=== PATIENT | male | born 1970 | race Caucasian/White ===

== ENCOUNTER → 2020-07-04 16:04 | Outpatient (BNVA) | payer OTHER, SELFPAY | PROVIDERS: PCP Internal Medicine; Referring Provider Internal Medicine; Visit Provider Internal Medicine Endocrinology, Diabetes & Metabolism | DX: E11.9 Type 2 diabetes mellitus without complications (principal); Z79.84 Long term (current) use of oral hypoglycemic drugs; E66.01 Morbid (severe) obesity due to excess calories; E78.5 Hyperlipidemia, unspecified; I10 Essential (primary) hypertension | CPT/HCPCS: 99212 ==

== ENCOUNTER → 2020-11-03 14:09 | Outpatient (BNVA) | payer OTHER, SELFPAY | PROVIDERS: PCP Internal Medicine; Referring Provider Internal Medicine; Visit Provider Internal Medicine Endocrinology, Diabetes & Metabolism | DX: E66.01 Morbid (severe) obesity due to excess calories (principal); E78.5 Hyperlipidemia, unspecified; I10 Essential (primary) hypertension; E11.9 Type 2 diabetes mellitus without complications | CPT/HCPCS: 82947; 99212 ==

== ENCOUNTER 2021-03-29 12:58 | Outpatient (REF) | payer OTHER, SELFPAY ==
[2021-03-29 15:15] LABS: Alanine Aminotransferase 33 U/L (0-40); Albumin Level 4.4 g/dL (3.5-5.0); Alkaline Phosphatase 62 U/L (39-117); Anion Gap 12 (12-20); Aspartate Amino Transferase 22 U/L (5-37); Bilirubin Total 0.5 mg/dL (0.0-1.0); Blood Urea Nitrogen 12 mg/dL (9-16); Calcium 9.1 mg/dL (8.4-10.2); Carbon Dioxide 25 mmol/L (22-29); Chloride 105 mmol/L (96-108); Cholesterol 148 mg/dL; Estimated Glomerular Filt Rate > 60; Glucose Fasting 124 mg/dL (60-99); HDL Cholesterol 45 mg/dL; LDL Cholesterol Calculated 87 mg/dl; Potassium 4.5 mmol/L (3.3-5.1); Sodium 137 mmol/L (135-145); Total Protein 7.4 g/dL (6.5-8.0); Triglycerides 81 mg/dL
[2021-03-29 15:36] LABS: Creatinine Urine 186.23 mg/dL; Microalbum/Creatinine Ratio Ur 4.2 ug/mg cr
[2021-03-29 15:39] LABS: Vitamin B12 169 pg/mL (200-900)
[2021-03-30 19:12] LABS: LDL Cholesterol Direct 91 mg/dL (<100)
== END 2021-03-29 12:59 | disposition home or self-care (01) ==
LOC: HO.LAB 12:58
PROVIDERS: PCP Internal Medicine; Visit Provider Internal Medicine Endocrinology, Diabetes & Metabolism
DX: E11.9 Type 2 diabetes mellitus without complications (principal); E66.01 Morbid (severe) obesity due to excess calories; E78.5 Hyperlipidemia, unspecified; I10 Essential (primary) hypertension; Z79.899 Other long term (current) drug therapy
CPT/HCPCS: 36415; 80053; 80061; 82043; 82607; 82947; 83721; 99212

== ENCOUNTER 2021-04-02 12:14 | Outpatient (REF) | payer OTHER, SELFPAY ==
--- NOTE | ~2021-04-02 | XR_ITS ---
EXAMINATION: XR SHOULDER, LEFT CLINICAL INFORMATION: Pain COMPARISON: None TECHNIQUE: Three views of the left shoulder. FINDINGS: Bone alignment is normal. No fracture or dislocation is seen. The joint spaces are normal. Soft tissues are normal. XR/XR shoulder LT min 2V IMPRESSION: Normal left shoulder.
== END 2021-04-02 12:15 | disposition home or self-care (01) ==
LOC: HO.HOSX 12:14
PROVIDERS: Visit Provider Orthopaedic Surgery
DX: M75.102 Unspecified rotator cuff tear or rupture of left shoulder, not specified as traumatic (principal)
CPT/HCPCS: 20610; 73030; 99202; J1100

== ENCOUNTER 2021-06-19 11:03 | Outpatient (RCR) | payer OTHER, SELFPAY ==
[2021-06-19 11:21] VITALS: BP 125/85
--- NOTE | 2021-06-28 09:41 | MHC.PT.EP ---
[facility] [place] Office [place] Office [place] Office [address] Oscar [address] [phone] F: [phone] F: [phone] F: [phone] F: [phone] Physical Therapy Plan of Care Date of Evaluation: Date of Surgery: Diagnosis: L shoulder RTC tear. Assessment: Pt is a 51 y/o male referred to PT for L shoulder RTC tear resulting in decreased tolerance and ability to perform reaching a high shelf, dressing pullovers, reaching his neck and back for hygiene/ dressing and carrying objects of weight as well as disturbed sleep secondary to decreased UE strength and ROM, decreased posture, increased tissue tension and pain. Pt is deemed an appropriate candidate to receive skilled PT in order to address his physical limitations to improve his functional ability. Frequency and Duration: The patient will be seen x / wk x 5 wks. Short Term Goals: Initiate HEP. improve baseline pain to < 5/10; initial 9/10. Business Operations Coordinator Goals: I with HEP. Pt will be able to place objects on a high shelf with managed Sx; initial: unable. Pt will reports managed Sx with dressing pullovers; initial 9/10 pain/ difficulty on SPADI. Treatment Plan: Modalities to reduce pain, spasms and effusion. Manual therapy to restore motion and function. Therapeutic exercise to improve strength and flexibility. Neuromuscular re-education for posture and balance. Therapeutic activities to return to functional activities of daily living. Electronically signed by: Patrick Mackey Pt. Please sign and return to therapist. Thank you for your referral.
--- NOTE | 2021-09-24 10:52 | MHC.PT.DC ---
[facility] Office [place] Office [place] Office [address] Lina Oscar [address] [phone] F: [phone] F: [phone] F: [phone] F: [phone] Physical Therapy Discharge Report Diagnosis: L shoulder RTC tear. Date of Surgery: Date of Evaluation: 06/19/21 Date of Discharge: 09/24/21 Treatments to Date: 1 Cancellations to Date: 3 No Shows to Date: 3 Discharge Status: Visit Non-compliance Discharge Summary: Electronically signed by: Patrick Mackey PT. Please sign and return to therapist. Thank you for your referral.
== END 2021-09-24 10:51 | disposition home or self-care (01) ==
LOC: HO.PTCHIC 11:03
PROVIDERS: PCP Internal Medicine; Visit Provider Orthopaedic Surgery
DX: M75.102 Unspecified rotator cuff tear or rupture of left shoulder, not specified as traumatic (principal)
CPT/HCPCS: 97110; 97161

== ENCOUNTER → 2021-10-02 10:52 | Outpatient (BNVA) | payer OTHER, SELFPAY | PROVIDERS: PCP Internal Medicine; Visit Provider Nurse Practitioner Gerontology | DX: E11.9 Type 2 diabetes mellitus without complications (principal); E78.5 Hyperlipidemia, unspecified; E53.8 Deficiency of other specified B group vitamins; E66.01 Morbid (severe) obesity due to excess calories; I10 Essential (primary) hypertension; Z68.42 Body mass index [BMI] 45.0-49.9, adult | CPT/HCPCS: 82947; 83036; 99212 ==

== ENCOUNTER → 2022-01-01 11:34 | Outpatient (BNVA) | payer OTHER, SELFPAY | PROVIDERS: PCP Internal Medicine; Visit Provider Nurse Practitioner Gerontology | DX: E11.9 Type 2 diabetes mellitus without complications (principal); E78.5 Hyperlipidemia, unspecified; E53.8 Deficiency of other specified B group vitamins; E66.01 Morbid (severe) obesity due to excess calories; I10 Essential (primary) hypertension; Z68.42 Body mass index [BMI] 45.0-49.9, adult; Z79.4 Long term (current) use of insulin | CPT/HCPCS: 82947; 83036; 99212 ==

== ENCOUNTER → 2022-04-11 14:29 | Outpatient (BNVA) | payer OTHER, SELFPAY | PROVIDERS: PCP Internal Medicine; Visit Provider Orthopaedic Surgery | DX: M75.102 Unspecified rotator cuff tear or rupture of left shoulder, not specified as traumatic (principal); E66.01 Morbid (severe) obesity due to excess calories; M75.31 Calcific tendinitis of right shoulder; E11.9 Type 2 diabetes mellitus without complications | CPT/HCPCS: 99212 ==

== ENCOUNTER → 2022-05-10 08:52 | Outpatient (BNVA) | payer OTHER, SELFPAY | PROVIDERS: PCP Physician Assistant Medical; Visit Provider Internal Medicine | DX: M25.511 Pain in right shoulder (principal); M25.512 Pain in left shoulder; M75.102 Unspecified rotator cuff tear or rupture of left shoulder, not specified as traumatic | CPT/HCPCS: 99202 ==

== ENCOUNTER → 2022-05-16 10:29 | Outpatient (BNVA) | payer OTHER, SELFPAY | PROVIDERS: PCP Physician Assistant Medical; Visit Provider Physician Assistant | DX: E66.01 Morbid (severe) obesity due to excess calories (principal); G47.33 Obstructive sleep apnea (adult) (pediatric); I48.91 Unspecified atrial fibrillation; I10 Essential (primary) hypertension; E78.5 Hyperlipidemia, unspecified; E11.9 Type 2 diabetes mellitus without complications; Z68.43 Body mass index [BMI] 50.0-59.9, adult | CPT/HCPCS: 99202; 99212 ==

== ENCOUNTER → 2022-06-06 10:21 | Outpatient (BNVA) | payer OTHER, SELFPAY | PROVIDERS: PCP Physician Assistant Medical; Visit Provider Physician Assistant | DX: E66.01 Morbid (severe) obesity due to excess calories (principal); G47.33 Obstructive sleep apnea (adult) (pediatric); I48.91 Unspecified atrial fibrillation; I10 Essential (primary) hypertension; E78.5 Hyperlipidemia, unspecified; E11.9 Type 2 diabetes mellitus without complications; Z68.43 Body mass index [BMI] 50.0-59.9, adult | CPT/HCPCS: 99211; 99212 ==

== ENCOUNTER 2022-06-07 16:01 | Outpatient (REF) | payer OTHER, SELFPAY ==
[2022-06-09 14:39] LABS: H Pylori Breath Test Positive (Negative)
== END 2022-06-07 16:02 | disposition home or self-care (01) ==
LOC: HO.LNP 16:01
PROVIDERS: Visit Provider Physician Assistant
DX: E66.01 Morbid (severe) obesity due to excess calories (principal); E11.9 Type 2 diabetes mellitus without complications
CPT/HCPCS: 83013

== ENCOUNTER 2022-06-25 12:00 | Outpatient (REF) | payer OTHER, SELFPAY ==
--- NOTE | ~2022-06-25 | XR_ITS ---
EXAMINATION: XR CHEST CLINICAL INFORMATION: Morbid obesity COMPARISON: None TECHNIQUE: 2 views of the chest were obtained. FINDINGS: Heart is normal in size. No acute vascular congestion. No focal infiltrates or pleural effusions. XR/XR chest 2V IMPRESSION: No acute process
[2022-06-25 12:30] LABS: MANUAL DIFF FLAG NO
--- NOTE | 2022-06-25 12:32 | ECG_ITS ---
Test Reason : E66.01 Blood Pressure : / mmHG Vent. Rate : 068 BPM Atrial Rate : 068 BPM P-R Int : 148 ms QRS Dur : 086 ms QT Int : 402 ms P-R-T Axes : 044 042 047 degrees QTc Int : 427 ms Normal sinus rhythm with sinus arrhythmia RSR' or QR pattern in V1 suggests right ventricular conduction delay Otherwise normal ECG No previous ECGs available Referred By: Mildred Lomas Electronically Signed By:NATHANIEL HORNER MD
[2022-06-25 13:16] LABS: Basophils Percent Auto 0.2 % (0-2); Eosinophils Absolute Auto 0.1 X10*3/uL (0.0-0.4); Eosinophils Percent Auto 2.4 % (0-4); Hematocrit 49.8 % (42.0-52.0); Hemoglobin 16.3 g/dl (14.0-18.0); Imm Gran Abs Auto 0.01 X10*3/uL (0.00-0.03); Imm Gran Pct Auto 0.2 % (0.0-0.4); Lymphocytes Absolute Auto 2.1 X10*3/uL (1.2-4.9); Lymphocytes Percent Auto 41.3 % (20-40); Mean Corpuscular HGB Conc 32.7 g/dl (31.0-36.0); Mean Corpuscular Volume 85.4 fL (80.0-98.0); Monocytes Absolute Auto 0.4 X10*3/uL (0.1-1.2); Monocytes Percent Auto 7.2 % (2-11); Neutrophils Absolute Auto 2.4 x10*3/uL (2.0-8.3); Neutrophils Percent Auto 48.7 % (45-73); Platelet Count 164 X10*3/uL (160-400); Red Blood Count 5.83 X10*6/uL (4.60-5.80)
[2022-06-25 13:22] LABS: Estimated Average Glucose 148 mg/dL; Hemoglobin A1c % 6.8 %
[2022-06-25 14:03] LABS: Alanine Aminotransferase 38 U/L (0-40); Albumin Level 4.5 g/dL (3.5-5.0); Alkaline Phosphatase 56 U/L (39-117); Anion Gap 15 (12-20); Aspartate Amino Transferase 21 U/L (5-37); Bilirubin Total 0.5 mg/dL (0.0-1.0); Blood Urea Nitrogen 18 mg/dL (9-16); C Reactive Protein 0.22 mg/dL (< or = 0.50); Calcium 9.6 mg/dL (8.4-10.2); Carbon Dioxide 27 mmol/L (22-29); Chloride 102 mmol/L (96-108); Cholesterol 214 mg/dL; Estimated Glomerular Filt Rate > 60; Glucose Random 134 mg/dL (60-115); HDL Cholesterol 46 mg/dL; Iron 65 mcg/dL (45-160); LDL Cholesterol Calculated 146 mg/dl; Percent Iron Saturation 21 % (15-50); Potassium 4.5 mmol/L (3.3-5.1); Sodium 139 mmol/L (135-145); Total Iron Binding Capacity 315 mcg/dL (228-428); Total Protein 7.4 g/dL (6.5-8.0); Triglycerides 112 mg/dL; Unsaturated Iron Binding 250 ug/dL
[2022-06-25 14:25] LABS: Folate 16.8 ng/mL (> or = 4.0); Vitamin B12 179 pg/mL (200-900)
[2022-06-25 14:31] LABS: Ferritin 156 ng/mL (20-250); Insulin 39 uU/mL (2-29); Vitamin D 25-OH Total 16.5 ng/mL (>30)
[2022-06-27 14:57] LABS: Calcium (PTHI) 9.4 mg/dL (8.6-10.3); PTHI 49 pg/mL (16-77)
[2022-06-29 06:52] LABS: Zinc 83 mcg/dL (60-130)
[2022-06-29 08:17] LABS: Vitamin B1 10 nmol/L (8-30)
[2022-06-30 18:56] LABS: Vitamin A 32 mcg/dL (38-98)
== END 2022-06-25 12:01 | disposition home or self-care (01) ==
LOC: HO.LAB 12:00
PROVIDERS: Visit Provider Physician Assistant
DX: E11.9 Type 2 diabetes mellitus without complications (principal); E66.01 Morbid (severe) obesity due to excess calories; E78.5 Hyperlipidemia, unspecified; G47.33 Obstructive sleep apnea (adult) (pediatric); I48.91 Unspecified atrial fibrillation; I10 Essential (primary) hypertension
CPT/HCPCS: 36415; 71046; 80053; 80061; 82306; 82607; 82728; 82746; 83036; 83525; 83540; 83970; 84425; 84443; 84590; 84630; 85025; 86140; 93005

== ENCOUNTER → 2022-07-24 10:17 | Outpatient (REF) | payer OTHER, SELFPAY ==
--- NOTE | 2022-07-24 10:20 | CA_ITS ---
Acquisition Time: 2022-07-24 10:49:17 Total Exercise Time: 00:06:52 Test Indications: Abn EKG Medications: See H Protocol: KAYLIE Max HR: 171 BPM 100% of Pred: 170 BPM Max BP: 182/070 mmHG Max Work Load: 8.3 METS Exercise stress test with exercise 6 min 52 sec of Kaylie protocol, achieving 100% MPHR, 8.3 METs, with moderate sob and fatigue with need to stop, with normotensive response to exercise, without EKG changes meeting criteria for ischemia. In recovery his breathing normalized. Test reviewed with Dr Miramontes Referred By: Mildred Lomas Overread By: DESTINEE LOZADA
== END ==
LOC: HO.CARD 10:17
PROVIDERS: Visit Provider Physician Assistant
DX: Z01.818 Encounter for other preprocedural examination (principal); E66.01 Morbid (severe) obesity due to excess calories; I10 Essential (primary) hypertension; I48.91 Unspecified atrial fibrillation; R94.31 Abnormal electrocardiogram [ECG] [EKG]
CPT/HCPCS: 93017

== ENCOUNTER → 2022-08-09 13:00 | Outpatient (BNVA) | payer OTHER, SELFPAY | PROVIDERS: PCP Physician Assistant Medical; Visit Provider Dietitian, Registered | DX: E66.01 Morbid (severe) obesity due to excess calories (principal); Z68.42 Body mass index [BMI] 45.0-49.9, adult; E11.9 Type 2 diabetes mellitus without complications; Z71.3 Dietary counseling and surveillance | CPT/HCPCS: 97802 ==

== ENCOUNTER → 2022-08-15 10:15 | Outpatient (BNVA) | payer OTHER, SELFPAY | PROVIDERS: PCP Physician Assistant Medical; Visit Provider Physician Assistant | DX: E66.01 Morbid (severe) obesity due to excess calories (principal); Z68.42 Body mass index [BMI] 45.0-49.9, adult; G47.33 Obstructive sleep apnea (adult) (pediatric); I48.91 Unspecified atrial fibrillation; I10 Essential (primary) hypertension; E78.5 Hyperlipidemia, unspecified; E11.9 Type 2 diabetes mellitus without complications | CPT/HCPCS: 99212 ==

== ENCOUNTER → 2022-09-04 08:54 | Outpatient (BNVA) | payer OTHER, SELFPAY | PROVIDERS: PCP Physician Assistant Medical; Referring Provider Physician Assistant; Visit Provider Dietitian, Registered | DX: E66.9 Obesity, unspecified (principal); E11.9 Type 2 diabetes mellitus without complications; Z11.0 Encounter for screening for intestinal infectious diseases; Z71.3 Dietary counseling and surveillance | CPT/HCPCS: 97803; 99211 ==

== ENCOUNTER 2022-09-04 15:26 | Outpatient (REF) | payer OTHER, SELFPAY ==
[2022-09-05 13:57] LABS: H Pylori Breath Test Positive (Negative)
== END 2022-09-04 15:27 | disposition home or self-care (01) ==
LOC: HO.LNP 15:26
PROVIDERS: Visit Provider Physician Assistant
DX: Z01.818 Encounter for other preprocedural examination (principal)
CPT/HCPCS: 83013

== ENCOUNTER → 2022-09-11 13:28 | Outpatient (BNVA) | payer OTHER, SELFPAY | PROVIDERS: PCP Physician Assistant Medical; Visit Provider Physician Assistant | DX: Z13.89 Encounter for screening for other disorder (principal) ==

== ENCOUNTER → 2022-10-03 10:50 | Outpatient (BNVA) | payer OTHER, SELFPAY | PROVIDERS: PCP Physician Assistant Medical; Visit Provider Physician Assistant | DX: Z13.89 Encounter for screening for other disorder (principal) ==

== ENCOUNTER → 2022-10-21 13:52 | Outpatient (BNVA) | payer OTHER, SELFPAY | PROVIDERS: PCP Physician Assistant Medical; Visit Provider Physician Assistant | DX: E66.01 Morbid (severe) obesity due to excess calories (principal); E11.9 Type 2 diabetes mellitus without complications; I10 Essential (primary) hypertension; I48.91 Unspecified atrial fibrillation; I45.89 Other specified conduction disorders; I49.9 Cardiac arrhythmia, unspecified; E78.5 Hyperlipidemia, unspecified; Z68.42 Body mass index [BMI] 45.0-49.9, adult | CPT/HCPCS: 99212 ==

== ENCOUNTER → 2022-11-19 10:47 | Outpatient (BNVA) | payer OTHER, SELFPAY | PROVIDERS: PCP Physician Assistant Medical; Visit Provider Dietitian, Registered | DX: E66.9 Obesity, unspecified (principal); E11.9 Type 2 diabetes mellitus without complications; Z71.3 Dietary counseling and surveillance | CPT/HCPCS: 97803 ==

== ENCOUNTER → 2022-12-20 12:46 | Outpatient (BNVA) | payer OTHER, SELFPAY | PROVIDERS: PCP Physician Assistant Medical; Visit Provider Physician Assistant | DX: E66.01 Morbid (severe) obesity due to excess calories (principal); I48.91 Unspecified atrial fibrillation; E78.5 Hyperlipidemia, unspecified; Z68.42 Body mass index [BMI] 45.0-49.9, adult | CPT/HCPCS: 99212 ==

== ENCOUNTER 2023-01-22 09:24 | Outpatient (REF) | payer OTHER, SELFPAY ==
--- NOTE | ~2023-01-22 | US_ITS ---
EXAMINATION: US COMPLETE ABDOMEN WITH LIVER ELASTOGRAPHY CLINICAL INFORMATION: Obesity COMPARISON: None available. TECHNIQUE: Real-time imaging of the abdominal viscera. Noninvasive ultrasound liver fibrosis assessment is performed using Tish ElastPQ point quantification shear wave elastography (2D-SWE) with a C5-2 MHz transducer. Multiple elastography samples are obtained. Limited exam due to patient body habitus and bowel gas. FINDINGS: PANCREAS: Not well visualized ABDOMINAL AORTA: The proximal, middle, and distal aortic segments are normal in caliber. INFERIOR VENA CAVA: Visualized portions are normal. LIVER: Liver echotexture is increased. The liver is normal in contour and size. No focal lesion or intrahepatic biliary duct dilatation. The right lobe measures 17 cm in length. The left lobe measures 14 cm in length. Portal flow is normal/hepatopedal Shear wave liver elastography median stiffness is 1.9 m/s (reference: normal median stiffness is 1.3 m/s or less). IQR/median stiffness to assess sampling precision is 0.12 (reference: good quality data set is IQR/median stiffness of 0.15 or less). GALLBLADDER: Ringdown artifact from the gallbladder suggestive of mild adenomyomatosis of the gallbladder wall. The gallbladder is otherwise normal. COMMON BILE DUCT: Normal in caliber measuring 0.5 cm in diameter. RIGHT KIDNEY: Question 3 mm stone in the midpole. No hydronephrosis. No focal parenchymal lesions. The kidney measures 11.6 cm in maximum dimension. LEFT KIDNEY: Normal. No hydronephrosis. No renal calculi or focal parenchymal lesions. The kidney measures 12.7 cm in maximum dimension. SPLEEN: Normal. The spleen measures 10 cm in maximum dimension. FREE FLUID: None. US/US abdomen comp w elastography IMPRESSION: 1. Impression: Limited exam due to patient body habitus and bowel gas. Echogenic liver probably representing fatty infiltration. Mild adenomyomatosis of the gallbladder wall. Question small right renal stone. Nonvisualization of the pancreas. 2. Liver elastography: Adequate liver sampling. Slightly increased liver stiffness suggestive of compensated advanced chronic liver disease but need further test for confirmation. REFERENCE: Society of Radiologists in Ultrasound Liver Stiffness Thresholds (2020): LIVER STIFFNESS THRESHOLDS: *Liver Stiffness equal or less than 1.3 m/s: High probability of being normal. *Liver Stiffness less than 1.7 m/s: In the absence of other known clinical signs, rules out compensated advanced chronic liver disease. *Liver Stiffness 1.7-2.1 m/s: Suggestive of compensated advanced chronic liver disease but need further test for confirmation. *Liver Stiffness over 2.1 m/s: Rules in compensated advanced chronic liver disease. *Liver Stiffness over 2.4 m/s: Suggestive of clinically significant portal hypertension. QUALITY OF DATA SET: *IQR/Median value equal or less than 0.15 implies a quality data set. *IQR/Median value over 0.15 implies a poor quality data set. SIGNIFICANT CHANGE FROM PRIOR EXAM: Significant change if liver stiffness measurement is 10% or greater from prior exam. OTHER CONSIDERATIONS: The stage of liver fibrosis may be overestimated in the setting of acute hepatitis, liver inflammation, elevated liver function tests, hepatic vascular congestion, obstructive cholestasis, non-fasting state, and infiltrative diseases such as amyloidosis and lymphoma. In some patients with NAFLD, the liver stiffness thresholds for compensated advanced chronic liver disease may be lower. In causes other than viral hepatitis and NAFLD, liver stiffness thresholds are not well established.
--- NOTE | ~2023-01-22 | FL_ITS ---
EXAMINATION: XR FLUOROSCOPY UPPER GI WITH AIR CLINICAL INFORMATION: Morbid obesity COMPARISON: None available. TECHNIQUE: Air-contrast upper GI examination. FINDINGS: There is normal apposition of the vocal cords while saying E . There is normal elevation of the soft palate while saying candy . The patient swallowed thin and thick barium and a 1/2 inch diameter barium tablet without difficulty. No persistent esophageal stricture is seen. There is normal esophageal motility. No mucosal abnormality is noted. No hiatal hernia is seen. There is mild transient gastroesophageal reflux seen within the distal third of the esophagus. The stomach demonstrates normal distensibility without abnormal mass or ulceration. There was no delay in gastric emptying. The duodenal bulb and sweep appeared unremarkable. FLUOROSCOPY TIME: 1.7 minutes DOSE AREA PRODUCT: 34.813 Gy-cm2 (levine-centimeter squared) FL/FL upper GI w air IMPRESSION: Mild gastroesophageal reflux which clears rapidly. Otherwise unremarkable air-contrast upper GI examination.
== END 2023-01-22 09:25 | disposition home or self-care (01) ==
LOC: HO.US 09:24
PROVIDERS: PCP Physician Assistant Medical; Visit Provider Physician Assistant
DX: Z01.818 Encounter for other preprocedural examination (principal); E66.01 Morbid (severe) obesity due to excess calories; E11.9 Type 2 diabetes mellitus without complications; E78.5 Hyperlipidemia, unspecified
CPT/HCPCS: 74246; 76705; 76981

== ENCOUNTER 2023-04-07 12:50 | Outpatient (AMB) | payer OTHER, SELFPAY ==
[2023-04-07 12:58] VITALS: BP 120/84; PULSE 78; BMI 50.1
--- NOTE | 2023-04-07 12:58 | MHC.OFFVIS ---
Intake Vital Signs 04/07/23 12:58 Height 5 ft 11 in Weight 359 lb 5.655 oz BMI 50.1 BP 120/84 Blood Pressure Location Lt brachial Position Sitting Pulse 78 Intake Visit Reasons: JACK WINDER/Suri Lomas /Abnormal electrocardiogram Intake Note: New patient abnormal ekg in the passed was a [facility] but not sure shy Sales Intern Required: No Allergies No Known Allergies Allergy (Verified 12/20/22 12:58) Medication List - Last Reconciled 04/07/23 by Carlos Alberto Miramontes MD canagliflozin (Invokana) 300 mg PO DAILY 30 days cholecalciferol (vitamin D3) 50 mcg PO DAILY cyanocobalamin (vitamin B-12) 500 mcg sublingual DAILY 90 days dulaglutide (Trulicity) 1.5 mg (0.5 mL) subcut QWEEK 28 days FreeStyle [place] Lite (blood-glucose meter) twice a day NS FreeStyle Lancets (lancets) twice a day NS FreeStyle Lite Strips (blood sugar diagnostic) Twice a day NS gabapentin 300 mg PO BEDTIME lisinopril 5 mg PO DAILY 30 days metoprolol succinate ER 25 mg PO DAILY rivaroxaban (Xarelto) 20 mg PO DAILY rosuvastatin 40 mg PO DAILY 30 days trazodone 100 mg PO BEDTIME PRN vitamin A palmitate 20,000 units PO DAILY 2 weeks zolpidem 10 mg PO BEDTIME PRN HPI HPI Comments History of Present Illness Details Thank you for referring Colton in cardiology consultation today for preoperative cardiovascular risk stratification prior to bariatric surgery. He is a pleasant 53-year-old male with prior history of paroxysmal atrial fibrillation diagnosed in 2012, hypertension, diabetes, obstructive sleep apnea. Patient schedule for bariatric surgery due to morbid obesity and to improve his comorbidities. Patient has no exertional chest pain or shortness of breath. Recently had EKG which shows inferior Q-waves and poor R-wave progression. Patient was referred for further evaluation for preoperative cardiovascular risk stratification. Patient denies any cardiovascular symptoms at good workload. Denies any exertional chest pain or shortness of breath. He r underwent a stress test in July which at 8 Mets of physical capacity had no symptoms of angina and no ischemic EKG changes. He has had no episodes of atrial fibrillation. He does not use his CPAP machine due to intolerance. He said he takes all his medications regularly including Xarelto. He denies any bleeding issues or neurologic events. [facility] Medical History A-fib B12 deficiency Chronic back pain Diabetes type 2, controlled Dyslipidemia Hypertension Morbid obesity Obesity due to excess calories JOSE (obstructive sleep apnea) Paroxysmal atrial fibrillation Surgical History Hx of shoulder surgery Family History Father Diabetes Mother Diabetes Heart disease Social History Household Members: Spouse Alcohol intake: never Patient Tobacco Use Status: Never used Tobacco Current occupational status: disabled Current occupation: left hand Review of Systems Const Denies chills, Denies daytime sleepiness, Denies fatigue, Denies fever(s), Denies frequent falls, Denies poor appetite, Denies snoring, Denies stops breathing during sleep, Denies weakness, Denies weight gain and Denies weight loss Eyes Denies loss of vision ENT Denies dizziness and Denies hearing loss Card Denies chest pain, Denies claudication, Denies leg edema, Denies lightheadedness, Denies palpitations, Denies dyspnea, Denies dyspnea on exertion and Denies orthopnea Resp Denies cough, Denies excessive phlegm production, Denies dyspnea, Denies dyspnea on exertion, Denies snoring and Denies wheezing GI Denies abdominal pain, Denies hematochezia, Denies change in bowel habits, Denies nausea and Denies vomiting Denies dysuria and Denies urinary frequency Musc Denies arthralgias, Denies muscle weakness, Denies numbness and Denies other (frequent falls) Skin/Breast Denies nail changes and Denies rash Neuro Denies Abnormal speech present, Denies dizziness, Denies frequent falls, Denies loss of vision, Denies memory loss, Denies numbness and Denies weakness Psych Denies depression and Denies memory loss Endo Denies fatigue and Denies palpitations Onrman/Lymph Reports easy bruising and Reports other (anemia) Aller/Immun Denies wheezing Physical Exam Vital Signs: Last Vital Signs Pulse 78 04/07/23 12:58 BP 120/84 04/07/23 12:58 BMI result Body Mass Index 50.1 Const General: cooperative, no acute distress, alert, awake and Physically active Nutritional Appearance: obese morbidly obese Orientation/consciousness: patient oriented x3 Limitations: no limitations HEENT Head: Yes normocephalic and Yes atraumatic Neck Neck: Yes trachea midline, Yes supple and Yes no JVD Resp Effort & Inspection: normal respiratory effort Auscultation: clear to auscultation bilaterally Cardio Jugular venous distension: no JVD Palpation: normal PMI Rate: regular rate Rhythm: regular rhythm Heart sounds: S1 normal heart sound present, S2 normal heart sound present, no click, no gallops, no murmurs and no rubs GI Inspection: Yes obesity Auscultation: normal bowel sounds Skin General skin exam: no rashes or lesions noted Neuro General: patient oriented x3 and no focal motor deficits Speech: No Abnormal speech present Extrem General: Yes no clubbing, cyanosis or edema Psych Appearance: grossly normal Office Procedures EKG Details: EKG shows normal sinus rhythm with isolated Q-wave in lead 3 most likely suggestive pseudo infarct pattern, low-voltage QRS most likely due to body habitus [id number], Complete Assessment & Plan Assessment & Plan (1) Preoperative cardiovascular examination: Code(s): Z01.810 - Encounter for preprocedural cardiovascular examination Plan: Preoperative cardiovascular risk stratification this middle-aged man with multiple risk factors for coronary disease with good functional capacity and normal treadmill stress test less than a year ago at a good workload. Patient with no concerning symptoms. Abnormal EKG most likely due to body habitus. Patient currently is optimized to undergo surgery with low risk for perioperative cardiovascular morbidity mortality. Xarelto can be stopped 3 days prior to the procedure and resumed as soon as possible after the procedure. Continue all antihypertensives in the perioperative. There is a risk for development of atrial fibrillation in the perioperative. , please consult us to manage the same. (2) Paroxysmal atrial fibrillation: Code(s): I48.0 - Paroxysmal atrial fibrillation Plan: Longstanding paroxysmal atrial fibrillation without any cardiac symptoms at current point time. Continue metoprolol therapy. Continue long-term full oral anticoagulation therapy with Xarelto. CHADSVASc score of 2. Semi annual renal function test should be pursued. Continue aggressive weight loss program and I thing bariatric surgery help with achieving that goal. Continue aggressive control blood pressure with goal blood pressure less than 130/84. Advised to monitor blood pressure at home maintain a log. Low-salt diet was discussed. Importance of CPAP therapy was discussed. Will follow up in the clinic in 1 year's time, sooner p.r.n.. Thank you for allowing me to partake in his care Orders: Orders CA echo transthorac w con Today I48.0 - Paroxysmal atrial fibrillation Coding Level of Care Code New Pt Level 4 (99806) Diagnoses Preoperative cardiovascular examination Z01.810 Paroxysmal atrial fibrillation I48.0 CPT Codes EKG - CPT: [id number], Complete ([id number])
== END 2023-04-07 13:19 | disposition home or self-care (01) ==
PROVIDERS: Visit Provider Internal Medicine Cardiovascular Disease
DX: Z01.810 Encounter for preprocedural cardiovascular examination (principal); I48.0 Paroxysmal atrial fibrillation
CPT/HCPCS: 93010; 99204

== ENCOUNTER → 2023-04-07 12:50 | Outpatient (BNVA) | payer OTHER, SELFPAY | PROVIDERS: Visit Provider Internal Medicine Cardiovascular Disease | DX: Z01.810 Encounter for preprocedural cardiovascular examination (principal); I48.0 Paroxysmal atrial fibrillation | CPT/HCPCS: 93005; 99202 ==

== ENCOUNTER 2023-04-08 15:24 | Outpatient (AMB) | payer OTHER, SELFPAY ==
--- NOTE | 2023-04-08 14:43 | A.OFFVIS_ITS ---
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 Needs new meal and exercise. Wakes at 9-10 am, bed at 10 - !2MN. Not using CPAP. 12 pm - bread 5pm - dinner Exercise - treadmill at home and gym 3d/ week. speed 3, incline ?, 30 minutes- calories. Bicyleta - 30 minutes Pre op work up completed as follows: SWL classes -? 04/15- can not access?online, doing 1:1with Suzanne, states he finished them [facility] appts - 08/05, Lisbet, cleared RD appts? - 08/09 and 09/04- not cleared H pylori - POSITIVE 06/06, treated, treated again on 09/05/22, treated a second time.?- Retest today--*not done* STates had negative test at [facility]. Labs - done CXR?-normal ECG - conduction delay and sinus arrythmia. Had cardiac stress test Exercise stress test with exercise 6 min 52 sec of Sunday protocol,[id number]% MPHR, 8.3 METs, withmoderate sob and fatigue with need to stop,with?normotensive response to exercise, without EKG changes meeting criteria for ischemia. In recovery his breathing normalized. Test reviewed with Dr Miramontes Follow up with Dr Miramontes 04/07/23 - cleared for bariatric surgery. ULS 01/28/23- Impression: Limited exam due to patient body habitus and bowel gas. Echogenic liver probably representing fatty infiltration. Mild adenomyomatosis of the gallbladder wall. Question small right renal stone. Nonvisualization of the pancreas. ?UGI- mild reflux only ?? ? PFSH Medical History A-fib B12 deficiency Chronic back pain Diabetes type 2, controlled Dyslipidemia Hypertension Morbid obesity Obesity due to excess calories JOSE (obstructive sleep apnea) Paroxysmal atrial fibrillation Surgical History Hx of shoulder surgery Family History Father Diabetes Mother Diabetes Heart disease Social History Household Members: Spouse Alcohol intake: never Patient Tobacco Use Status: Never used Tobacco Current occupational status: disabled Current occupation: left hand Assessment & Plan Assessment & Plan (1) Morbid obesity: Code(s): E66.01 - Morbid (severe) obesity due to excess calories Plan: PT has been in our SWL program ofr 11 months with 7 lb weight loss, he comes in today stating that he really wants to have the surgery but can not seem to commit to the changes he needs to make, He is open to having an appt with Latoya now, it is being scheduled. We had a long discussion about why he needs to do what he needs to do. 1. Use CPAP machine every night for at least 6 hours 2. Meal plan of: (he only wants shakes and food) 11 am - shake 2 pm - shake 5pm - meal of 6 oz lean protein and 8 oz vegetetable, 1 serving fruit 8pm - shake 3. Restart effective exercise - gym 4 d/ week Treadmill for 300 calories, speed 3.0 incline 2-7 Bicycle for 200 calories 4. Will obtain h pylori result from [facility] 5. Appt with Latoya now 6. Appt with Suzanne once he is back on track Next appt with me in 3 weeks Patient is morbidly obese and is not considered stable at this time. I spent 30 minutes in total with patient reviewing/updating records, examining the patient and counseling the patient on weight management as detailed above. (2) H. pylori infection: Code(s): A04.8 - Other specified bacterial intestinal infections Coding Level of Care Code Est Pt Level 4 (13303) Diagnoses Morbid obesity E66.01 H. pylori infection A04.8
[2023-04-08 15:35] VITALS: BP 150/71; PULSE 71; TEMP 36.6; O2SAT 96; BMI 49.3
== END 2023-04-08 16:04 | disposition home or self-care (01) ==
PROVIDERS: PCP Physician Assistant Medical; Visit Provider Physician Assistant
DX: E66.01 Morbid (severe) obesity due to excess calories (principal); Z68.42 Body mass index [BMI] 45.0-49.9, adult; A04.8 Other specified bacterial intestinal infections
CPT/HCPCS: 99214

== ENCOUNTER → 2023-04-08 15:24 | Outpatient (BNVA) | payer OTHER, SELFPAY | PROVIDERS: PCP Physician Assistant Medical; Visit Provider Physician Assistant | DX: E66.01 Morbid (severe) obesity due to excess calories (principal); A04.8 Other specified bacterial intestinal infections; Z68.42 Body mass index [BMI] 45.0-49.9, adult | CPT/HCPCS: 99212 ==

== ENCOUNTER → 2023-07-24 11:10 | Outpatient (REF) | payer OTHER, SELFPAY ==
--- NOTE | 2023-07-24 11:12 | CA_ITS ---
Transthoracic Echocardiogram Patient (Last, First, Middle): Colton Alston M Gender: Male Date of : 1970 Age: 53 Procedure Date: 07/24/2023 Procedure Type: Transthoracic Echocardiogram Location: OP Height: 180.34 cm Weight: 158.76 kg BSA: 2.68 m2 Heart Rate: 74 bpm BP: 150 / 71 mmHg Paper Stripper: RADHA/JOSE Referring MD: Carlos Alberto Miramontes MD Symptoms: I48.0 - Paroxysmal atrial fibrillation Study Quality: Fair ECG Rhythm: Sinus Conclusions: - The left ventricular systolic function is normal. The visually estimated ejection fraction is between 60-65%. - There is moderate septal asymmetric hypertrophy. - No obvious valvular pathology seen on this study. Findings Procedure Information Contrast agent, definity, is being given per protocol without apparent complications. The quality of the study was technically difficult. The study quality is limited by patients body habitus. Left Ventricle Normal left ventricular cavity size. There is mildly increased left ventricular wall thickness. The left ventricular systolic function is normal. The visually estimated ejection fraction is between 60-65%. There is no evidence of regional wall motion abnormalities. Diastolic function is normal for age. There is moderate septal asymmetric hypertrophy. Right Ventricle The right ventricle was not well visualized. Atria The left atrium is mildly dilated. The right atrium was not well visualized. Aortic Valve There is a normal trileaflet aortic valve. There is no aortic valve stenosis. There is no aortic valve regurgitation. Mitral Valve The mitral valve appears normal. There is no mitral valve regurgitation. There is no mitral valve stenosis. Pulmonic Valve The pulmonic valve is likely normal. Tricuspid Valve There is no tricuspid valve regurgitation. Tricuspid regurgitation envelope is inadequate for calculation of right ventricular systolic pressure. Great Vessels The asc aorta is normal in size. Venous The inferior vena cava is normal in size and collapses greater than 50% with inspiration. Pericardium/Pleural There is no evidence of pericardial effusion. Prior Study Comparison No prior study available for comparison. Recommendations, Care & Conclusions No obvious valvular pathology seen on this study. Measurements 2D Linear Measurements IVSd: 1.57 0.6-0.9/0.6-1.0 cm LVIDd: 4.09 3.9-5.3/4.2-5.9 cm LVIDd Index: 1.53 2.4-3.2/2.2-3.1 cm/m2 LVIDs: 2.98 2.0-3.6 cm LVPWd: 1.28 0.7-1.1 cm LA Diam: 4.50 2.7-3.8/3.0-4.0 cm LAIDs Index: 1.68 1.5-2.3 cm/m2 LV Mass: 276.47 67-162/88-224 g LV Mass Index: 103.16 43-95/49-115 g/m2 LVOT Diam: 2.10 3.0+(-)1.3 cm 2D Systolic Function EF 2C: 67.10 >55% Mitral Valve MV Pk E: 0.81 MV PK A: 0.34 MV Decel Time: 185.00 E/A: 2.40 E'Lateral: 8.70 E'Medial: 8.38 E/E' Med: 9.60 E/E' Lat: 9.30 PHT: 54.00 MVA PHT: 4.07 Decel Rice: 4.35 Aortic Valve AoV Pk Real: 0.92 AoV Pk Grad: 3.00 BRITTANY: 3.10 LVOT LVOT Pk Real: 0.82 LVOT Mn Real: 0.60 LVOT VTI: 0.17 LVOT Pk Grad: 3.00 LVOT Mn Grad: 2.00 LVOT Diam: 2.10 LVOT Area: 3.46 Diastolic Function MV Pk E: 0.81 MV Pk A: 0.34 E/A: 2.40 E'Medial: 8.38 E/E' Med: 9.60 E' Laterial: 8.70 E/E' Lat: 9.30 Right Ventricle TVS' Real: 10.40 Tricuspid Valve RA Press: 8.00 Great Vessels Aorta Sinus of Valsalva: 2.90 2.0-3.5 cm Ao Asc: 3.20 2.1-3.4 cm Pulmonary Valve PV Pk Real: 0.83 Peak PV Grad: 3.00 Updated in Other Vendor System with Status of Final Jose Finnegan MD electronically signed on 07/26/2023 11:42:29 AM with status of Final
== END ==
LOC: HO.CARD 11:10
PROVIDERS: PCP Physician Assistant Medical; Visit Provider Internal Medicine Cardiovascular Disease
DX: I48.0 Paroxysmal atrial fibrillation (principal)
CPT/HCPCS: 93306; Q9957

== ENCOUNTER → 2023-07-24 11:12 | Outpatient (BNV) | payer OTHER, SELFPAY | PROVIDERS: PCP Physician Assistant Medical; Visit Provider Internal Medicine | DX: I48.0 Paroxysmal atrial fibrillation (principal) | CPT/HCPCS: 93306 ==